=== PATIENT | female | born 1955 | race Caucasian/White ===

== ENCOUNTER 2018-09-05 23:29 | Emergency (ER) | payer OTHER ==
[~2018-09-05] VITALS: Ht 157.5 cm; Wt 76.7 kg
[2018-09-05 23:34] VITALS: Ht 157.5 cm; Wt 76.7 kg
[2018-09-05] MEDS ORDERED: SODIUM CHLORIDE 0.9% 1L BAG IV* STA (23:43)
[2018-09-05] MEDS ORDERED: ACETAMINOPHEN 325 MG TAB PO STA (23:43)
[2018-09-05] MEDS ORDERED: CEFEPIME 2GM/50 ML (PMX) 50 ML IVPB STA (23:43)
[2018-09-06] MEDS ORDERED: VANCOMYCIN 1 GM (PMX) 250 ML IVPB ONE
[2018-09-06] MEDS ORDERED: ONDA4TAB14 PO (03:09)
[2018-09-06] MEDS ORDERED: CIPR500T4 PO (03:09)
[2018-09-06] MEDS ORDERED: TRAM50TA2 PO (03:09)
[2018-09-06] MEDS ORDERED: IBUPROFEN 600 MG TAB PO ONE (03:30)
[2018-09-06 03:40] VITALS: BP 119/87; PULSE 94; RESP 24
--- NOTE | 2018-09-26 21:20 | ERD ---
ER Documentation Chief Complaint Chief Complaint HEADACHE WITH N/V; ELEVATED BP HPI This 63-year-old female complains of fever body aches chills nausea and vomiting along with dysuria for the past 3 days. Denies any blood in her vomit. Denies any current complaints. Pain is mild to moderate intensity no exacerbating effects. Denies any other current issues. ROS All systems reviewed and are negative except as per history of present illness. Medications Home Meds Active Scripts Ondansetron (Ondansetron Odt) 4 Mg Tab.rapdis, 4 MG PO Q6H PRN for NAUSEA AND/OR VOMITING, #10 TAB Prov:IVETTE GRIER S. 09/06/18 Tramadol HCl (Tramadol HCl) 50 Mg Tablet, 50 MG PO Q4 PRN for PAIN, #20 TAB Prov:IVETTE GRIER. 09/06/18 Ciprofloxacin Hcl* (Ciprofloxacin Hcl*) 500 Mg Tablet, 500 MG PO BID for 7 Days, TAB Prov:IVETTE GRIER. 09/06/18 Allergies Allergies: Coded Allergies: No Known Allergy (Unverified , 09/06/18) PMhx/Soc History of Surgery: Yes (left breast, hysterectomy, C- section) Anesthesia Reaction: No Hx Neurological Disorder: No Hx Respiratory Disorders: No Hx Cardiac Disorders: Yes (HTN) Hx Psychiatric Problems: No Hx Miscellaneous Medical Probl: No Hx Alcohol Use: No Hx Substance Use: No Hx Tobacco Use: No Smoking Status: Never smoker Physical Exam Physical Exam Const: No acute distress Head: Atraumatic Eyes: Normal Conjunctiva ENT: Normal External Ears, Nose and Mouth. Neck: Full range of motion. No meningismus. Resp: Clear to auscultation bilaterally Cardio: Regular rate and rhythm, no murmurs Abd: Soft, non tender, non distended. Normal bowel sounds Skin: No petechiae or rashes Back: No midline or flank tenderness Ext: No cyanosis, or edema Neur: Awake and alert Psych: Normal Mood and Affect Results 24 hrs Laboratory Tests Test 09/05/18 23:51 09/05/18 23:52 09/06/18 01:54 Prothrombin Time 13.4 Sec Prothrombin Time Ratio 1.0 INR International 1.01 Normalized Ratio Activated Partial Thromboplast 33.1 Sec Time POC Venous Lactate 1.4 mmol/L 1.5 mmol/L White Blood Count 13.8 10^3/ul Red Blood Count 4.96 10^6/ul Hemoglobin 14.7 g/dl Hematocrit 42.1 % Mean Corpuscular Volume 84.9 fl Mean Corpuscular Hemoglobin 29.6 pg Mean Corpuscular 34.9 g/dl Hemoglobin Concent Red Cell Distribution Width 12.7 % Platelet Count 167 10^3/UL Mean Platelet Volume 9.8 fl Immature Granulocytes % 0.400 % Neutrophils % 87.3 % Lymphocytes % 6.1 % Monocytes % 6.1 % Eosinophils % 0.0 % Basophils % 0.1 % Nucleated Red Blood Cells % 0.0 /100WBC Immature Granulocytes # 0.060 10^3/ul Neutrophils # 12.1 10^3/ul Lymphocytes # 0.9 10^3/ul Monocytes # 0.9 10^3/ul Eosinophils # 0.0 10^3/ul Basophils # 0.0 10^3/ul Nucleated Red Blood Cells # 0.0 10^3/ul Urine Color TOM Urine Clarity SLIGHTLY CLOUDY Urine pH 6.0 Urine Specific [place] 1.014 Urine Ketones NEGATIVE mg/dL Urine Nitrite POSITIVE mg/dL Urine Bilirubin NEGATIVE mg/dL Urine Urobilinogen 2+ mg/dL Urine Leukocyte Esterase 2+ Bro/ul Urine Microscopic RBC 10 /HPF Urine Microscopic WBC 121 /HPF Urine Bacteria MODERATE /HPF Urine Hemoglobin 2+ mg/dL Urine Glucose NEGATIVE mg/dL Urine Total Protein 2+ mg/dl Sodium Level 142 mmol/L Potassium Level 3.9 mmol/L Chloride Level 105 mmol/L Carbon Dioxide Level 25 mmol/L Anion Gap 12 Blood Urea Nitrogen 11 mg/dl Creatinine 0.76 mg/dl Est Glomerular Filtrat > 60 mL/min Rate mL/min Glucose Level 151 mg/dl Calcium Level 9.5 mg/dl Total Bilirubin 1.1 mg/dl Direct Bilirubin 0.00 mg/dl Indirect Bilirubin 1.1 mg/dl Aspartate Amino Transf (AST/SGOT) 40 IU/L Alanine 52 IU/L Aminotransferase (ALT/SGPT) Alkaline Phosphatase 102 IU/L Troponin I < 0.012 ng/ml Total Protein 8.3 g/dl Albumin 4.7 g/dl Globulin 3.60 g/dl Albumin/Globulin Ratio 1.30 Current Medications Medications Dose Sig/Zenobia Start Time Status Last (Trade) Ordered Route PRN Stop Time Admin Dose Reason Admin Sodium 2,300 ml BOLUS OVER 2 09/05/18 DC 09/06/18 Chloride HOURS STAT 23:43 00:01 (NS) IV* 09/05/18 23:45 650 mg ONCE STAT 09/05/18 DC 09/06/18 Acetaminophen PO 23:43 00:02 (Tylenol 09/05/18 23:45 Tab) Cefepime HCl 50 ml @ ONCE STAT 09/05/18 DC 09/06/18 100 mls/hr IVPB 23:43 00:03 09/06/18 00:12 Vancomycin 250 ml @ ONCE ONCE 09/06/18 DC 09/06/18 HCl 125 mls/hr IVPB 00:00 00:36 09/06/18 01:59 Ibuprofen 600 mg ONCE ONCE 09/06/18 DC 09/06/18 (Motrin) PO 03:30 03:20 09/06/18 03:31 Procedures/MDM Medical decision: 89 female evidence of early pyelonephritis likely causing her headache. Has been clinically stable. Fevers resolved. Patient will be discharged home with short course of antibiotics and asked to follow with the primary care physician pending urine culture results Departure Diagnosis: Primary Impression: Headache Headache type: unspecified Headache chronicity pattern: unspecified pattern Intractability: not intractable Qualified Codes: R51 - Headache Condition: Stable Patient Instructions: Pyelonephritis, Female (Adult) IVETTE GRIER September 26, 2018 21:20
== END 2018-09-06 03:40 | disposition home or self-care (01) ==
LOC: EDBD 23:29 → E/R 23:29
DX: R51 Headache (principal); R40.2142 Coma scale, eyes open, spontaneous, at arrival to emergency department; R40.2362 Coma scale, best motor response, obeys commands, at arrival to emergency department; R40.2252 Coma scale, best verbal response, oriented, at arrival to emergency department; I10 Essential (primary) hypertension; R11.2 Nausea with vomiting, unspecified; R30.0 Dysuria
CPT/HCPCS: 71045; 80053; 81001; 83605; 84484; 85025; 85610; 85730; 87040; 87086; 87400; 93005; J0692; J3370; J7030; Z7610; 36415; 96374; 96375